=== PATIENT | male | born 1990 | race Caucasian/White ===

== ENCOUNTER 2024-08-13 05:09 | Emergency (ER) | payer OTHER, SELFPAY ==
[2024-08-13 05:14] VITALS: BP 148/80; PULSE 80; RESP 18; TEMP 36.7; O2SAT 100; BMI 25.1
--- NOTE | 2024-08-13 05:27 | CRLHL7_ITS ---
For Patients: As a result of the Century Cures Act, medical imaging exams and procedure reports are released immediately into your electronic medical record. You may view this report before your referring provider. If you have questions, please contact your health care provider. INDICATION: Left flank pain and hematuria. COMPARISON: None. TECHNIQUE: CT of the abdomen and pelvis with intravenous contrast. Multiplanar axial, coronal, and sagittal reformats were reconstructed. Contrast: 85 mL Isovue 370. FINDINGS: Lung bases: Normal. Liver: There is a 0.5 centimeter subcapsular hypodense liver lesion on series 2, image 20. Gallbladder and bile ducts: Normal gallbladder. No bile duct dilation. Pancreas: Normal. Spleen: Normal. Adrenal glands: Normal. Kidneys: There is a 3 millimeter calculus in the left distal ureter. The calculus is about 1.5 centimeters above the ureterovesicular junction. There is upstream ureterectasis and pelvocaliectasis. There is a delayed left nephrogram. No urothelial thickening or enhancement. No perinephric stranding. Normal right renal parenchyma. No cyst or solid mass. No right-sided urinary tract calculi. No right-sided urinary tract dilation. Urinary bladder: Barely filled but normal. Pelvis: No cyst or mass. Vessels: Normal. Bowel: No dilated or inflamed bowel. Normal appendix. Moderate to large stool burden. Lymph nodes: No adenopathy. Peritoneum: No ascites. Abdominal wall: No hernia. Bones: No fractures. No focal worrisome bone lesions. IMPRESSION: 1. There is a 3 millimeter obstructing calculus in the left distal ureter. 2. There is a 0.5 centimeter liver lesion. Very likely to be a small cyst or hemangioma. Depending on the patient`s risk factors for malignancy or metastasis, could consider further characterization with MRI. Keep in mind that due to the very small size and subcapsular location in the dome, it may not be well seen on MRI. Please note that all CT scans at this facility use dose modulation, iterative reconstruction, and/or weight-based dosing when appropriate to reduce radiation dose to as low as reasonably achievable. Dictated by Muna Massey MD @ 08/13/2024 6:04:52 AM (Electronically Signed)
[2024-08-13] MEDS: ONDANSETRON 2 MG/ML inj 4 MG IVP (05:36)
[2024-08-13] MEDS: KETOROLAC 30 MG/ML inj IVP (05:37)
[2024-08-13] MEDS: MORPHINE 4 MG/ML INJ IVP (05:38)
[2024-08-13] MEDS: 0.9 % SODIUM CHLORIDE 1000 ml 1,000 ML IV (05:39)
--- NOTE | 2024-08-13 05:45 | ED.NURSE ---
pt taken for CT scan
[2024-08-13 05:52] LABS: Basophils Absolute Auto 0.03 K/uL (0.00-0.30); Basophils Percent Auto 0.4 % (0.0-3.0); Eosinophils Absolute Auto 0.09 K/uL (0.00-0.50); Eosinophils Percent Auto 1.2 % (0.0-7.0); Hematocrit 47.6 % (37.0-53.0); Hemoglobin* 15.8 gm/dL (13.5-17.5); Immature Granulocytes Abs Auto 0.06 K/uL (0.00-0.30); Immature Granulocytes Pct Auto 0.8 %; Lymphocytes Absolute Auto 1.89 K/uL (0.90-2.90); Lymphocytes Percent Auto 25.8 % (20-44); Mean Corpuscular HGB Conc 33 gm/dL (32-36); Mean Corpuscular Hemoglobin 29 pg (26-34); Mean Corpuscular Volume 87 fL (80-100); Monocytes Percent Auto 5.7 % (0.0-11.0); Neutrophils Absolute Auto 4.84 K/uL (1.7-7.0); Neutrophils Percent Auto 66.1 % (42.0-72.0); Platelet Count* 313 K/uL (140-440); RDW Coefficient of Variation % 11.6 % (11.5-15.5); Red Blood Count 5.45 m/uL (4.30-5.90); Slide Review Reflex No; White Blood Count* 7.33 K/uL (4.50-11.00)
[2024-08-13 06:11] LABS: Chloride* 105 mmol/L (96-114); Sodium* 141 mmol/L (135-149)
[2024-08-13 06:12] LABS: Potassium* 3.9 mmol/L (3.6-5.1)
[2024-08-13 06:14] LABS: Anion Gap 8 mEq/L (7-15); Carbon Dioxide* 28 mmol/L (20-32); Creatinine* 0.9 mg/dL (0.5-1.5); Est. Creatinine Clearance* 118.29; Estimated Glomerular Filt Rate 114 ml/min
[2024-08-13 06:15] LABS: Blood Urea Nitrogen* 22 mg/dL (5-24); Calcium* 9.5 mg/dL (8.4-10.6); Glucose* 122 mg/dL (60-115)
[2024-08-13] MEDS: HYDROmorphone 0.5 mg/0.5 ml inj IVP (06:17)
[2024-08-13] MEDS: TAMSULOSIN HCL 0.4 MG CAPSULE PO (07:03)
--- NOTE | 2024-08-14 21:29 | ED.GENADULT ---
HPI - General Adult General Chief complaint: Flank Pain Stated complaint: Left flank pain, blood in urine Time Seen by Provider: 08/13/24 05:21 History of Present Illness HPI narrative: pt reports at 0330, left sided flank pain, nauseated , red urine. pt states no kidney stone history. Pt vomiting during triage, yellow in color. Pt reports no pain with urination . Pt stated after peeing, flank felt a little better. 34-year-old man presenting to the emergency department with complaint of sudden onset of sharp flank pain in the left. He did see what a suspected to be blood in his urine. Is nauseated and did vomit apparently during triage. No fever. No noted injury. No history of ureteral stone/kidney stones. No other discharge described. Has had low back pain before but this is different. Did seem to radiate toward the groin as well. Related Data Previous Rx's ?Medication ?Instructions ?Recorded amoxicillin 500 mg capsule 500 mg PO TID Strep Throat #21 caps 10/13/22 ondansetron 4 mg disintegrating 4 mg PO Q4-6H PRN nausea and 08/13/24 tablet vomiting #6 tabs oxycodone-acetaminophen 5 mg-325 1 - 2 tab PO Q4-6H PRN pain #12 08/13/24 mg tablet (Percocet) tabs tamsulosin 0.4 mg capsule (Flomax) 0.4 mg PO DAILY PRN #14 caps 08/13/24 Allergies Allergy/AdvReac Type Severity Reaction Status Date / Time No Known Drug Allergies Allergy Verified 10/13/22 08:08 Review of Systems Status of ROS: Reports: 6 or more systems reviewed and unremarkable except as noted in History and below [facility] Medical History Strep throat ?J02.0 - Streptococcal pharyngitis (ICD-10) Social History Smoking Status: Never smoker Non-prescribed substance use: denies use service: No Exam Narrative: Exam Narrative: Appears uncomfortable, restless. Breathing easily. Skin is warm and dry. Sore to palpation in the left mid abdomen/flank. No SI joint area tenderness. Lungs are clear. Heart in regular rate and rhythm. Const: Documenting provider has reviewed patient's vital signs: yes Course Vital Signs Vital signs: Initial Vital Signs Temperature 98.0 F 08/13/24 05:14 Temperature Source Temporal Artery Scan 08/13/24 05:14 Pulse Rate 80 08/13/24 05:14 Pulse Rhythm Regular 08/13/24 05:14 Respiratory Rate 18 08/13/24 05:14 Blood Pressure 148/80 H 08/13/24 05:14 Blood Pressure Mean 102 08/13/24 05:14 Blood Pressure Position Sitting 08/13/24 05:14 Pulse Oximetry 100 08/13/24 05:14 Oxygen Delivery Method Room Air 08/13/24 05:14 Vital Signs Temperature 98.0 F 08/13/24 05:14 Pulse Rate 80 08/13/24 05:14 Respiratory Rate 18 08/13/24 05:14 Blood Pressure 148/80 H 08/13/24 05:14 Pulse Oximetry 100 08/13/24 05:14 Oxygen Delivery Method Room Air 08/13/24 05:14 Temperature 98.0 F 08/13/24 05:14 Pulse Rate 80 08/13/24 05:14 Respiratory Rate 18 08/13/24 05:14 Blood Pressure 148/80 H 08/13/24 05:14 Pulse Oximetry 100 08/13/24 05:14 Oxygen Delivery Method Room Air 08/13/24 05:14 Medications Administered Medications: Discontinued Medications Generic Name Dose Route Start Last Admin Trade Name Freq PRN Reason Stop Dose Admin Hydromorphone HCl 0.5 mg 08/13/24 06:01 08/13/24 06:17 Hydromorphone 0.5 Mg/0.5 Ml Inj IVP 08/13/24 06:02 0.5 mg ONCE ONE Administration Sodium Chloride 1,000 mls @ 1,000 mls/hr 08/13/24 05:27 08/13/24 06:18 0.9 % Sodium Chloride 1000 Ml IV 08/13/24 06:26 Infused .Q1H ONE Infusion Ketorolac Tromethamine 30 mg 08/13/24 05:28 08/13/24 05:37 Ketorolac 30 Mg/Ml Inj IVP 08/13/24 05:29 30 mg ONCE ONE Administration Morphine Sulfate 4 mg 08/13/24 05:28 08/13/24 05:38 Morphine 4 Mg/Ml Inj IVP 08/13/24 05:29 4 mg ONCE ONE Administration Ondansetron HCl 4 mg 08/13/24 05:28 08/13/24 05:36 Ondansetron 2 Mg/Ml Inj IVP 08/13/24 05:29 4 mg ONCE ONE Administration Tamsulosin HCl 0.4 mg 08/13/24 06:54 08/13/24 07:03 Tamsulosin Hcl 0.4 Mg Capsule PO 08/13/24 06:55 0.4 mg ONCE ONE Administration Medical Decision Making MDM Narrative Medical decision making narrative: Doubtful to be urinary tract infection. Really describing urinary colic and what I would suspect is a ureteral stone probably now in the distal ureter. Doubtful diverticulitis though I guess this remains in differential. Could also be vascular disruption/dissection. As this is first-time occurrence I would order CT imaging check labs. Offer symptom relief and IV fluids. Ordered for normal saline morphine and ketorolac. Labs are reassuring. I do independently review CT imaging of abdomen and pelvis. There does appear to be a 2-3 mm stone in the distal left ureter not quite at the ureteral vesicular junction. No significant hydronephrosis. Radiology over-read below INDICATION: Left flank pain and hematuria. COMPARISON: None. TECHNIQUE: CT of the abdomen and pelvis with intravenous contrast. Multiplanar axial, coronal, and sagittal reformats were reconstructed. Contrast: 85 mL Isovue 370. FINDINGS: Lung bases: Normal. Liver: There is a 0.5 centimeter subcapsular hypodense liver lesion on series 2, image 20. Gallbladder and bile ducts: Normal gallbladder. No bile duct dilation. Pancreas: Normal. Spleen: Normal. Adrenal glands: Normal. Kidneys: There is a 3 millimeter calculus in the left distal ureter. The calculus is about 1.5 centimeters above the ureterovesicular junction. There is upstream ureterectasis and pelvocaliectasis. There is a delayed left nephrogram. No urothelial thickening or enhancement. No perinephric stranding. Normal right renal parenchyma. No cyst or solid mass. No right-sided urinary tract calculi. No right-sided urinary tract dilation. Urinary bladder: Barely filled but normal. Pelvis: No cyst or mass. Vessels: Normal. Bowel: No dilated or inflamed bowel. Normal appendix. Moderate to large stool burden. Lymph nodes: No adenopathy. Peritoneum: No ascites. Abdominal wall: No hernia. Bones: No fractures. No focal worrisome bone lesions. IMPRESSION: 1. There is a 3 millimeter obstructing calculus in the left distal ureter. 2. There is a 0.5 centimeter liver lesion. Very likely to be a small cyst or hemangioma. Depending on the patient`s risk factors for malignancy or metastasis, could consider further characterization with MRI. Keep in mind that due to the very small size and subcapsular location in the dome, it may not be well seen on MRI. Pain did escalate and was given a dose of hydromorphone. On reassessment after time of observation is overall improved. I discussed all findings including liver cyst versus hemangioma or other concerns and the ureteral stone with Dionisio. Was also given a dose of Flomax before departure. See patient discharge plan for further discussion You have a 3 mm kidney stone in the lower left ureter about at your bladder. Please strain your urine over the next week. Generally stay well-hydrated. Would take Flomax daily until the stone is not an issue anymore. Prescribing opiate pain medicine and nausea medicine if needed. Otherwise take ibuprofen up to 800 mg per dose. See report regarding 0.5 cm liver lesion. Please discuss this with your primary care provider in follow-up. Medical Records Medical records reviewed: Yes I reviewed the patient's medical records Lab Data Lab results reviewed: Yes I reviewed the patient's lab results Labs: Lab Results 08/13/24 Range/Units 05:37 WBC 7.33 (4.50-11.00) K/uL RBC 5.45 (4.30-5.90) m/uL Hgb 15.8 (13.5-17.5) gm/dL Hct 47.6 (37.0-53.0) % MCV 87 (80-100) fL MCH 29 (26-34) pg MCHC 33 (32-36) gm/dL RDW Coeff of Leela 11.6 (11.5-15.5) % Plt Count 313 (140-440) K/uL Neut % (Auto) 66.1 (42.0-72.0) % Lymph % (Auto) 25.8 (20-44) % [place] % (Auto) 5.7 (0.0-11.0) % Eos % (Auto) 1.2 (0.0-7.0) % Baso % (Auto) 0.4 (0.0-3.0) % Neut # (Auto) 4.84 (1.7-7.0) K/uL Lymph # (Auto) 1.89 (0.90-2.90) K/uL [place] # (Auto) 0.40 (0.00-0.90) K/UL Eos # (Auto) 0.09 (0.00-0.50) K/uL Baso # (Auto) 0.03 (0.00-0.30) K/uL Abs Immat Gran (auto) 0.06 (0.00-0.30) K/uL Imm/Tot Granulo (auto) 0.8 % Sodium 141 (135-149) mmol/L Potassium 3.9 (3.6-5.1) mmol/L Chloride 105 (96-114) mmol/L Carbon Dioxide 28 (20-32) mmol/L Anion Gap 8 (7-15) mEq/L BUN 22 (5-24) mg/dL Creatinine 0.9 (0.5-1.5) mg/dL Estimated Creat Clear 118.29 Estimated GFR 114 ml/min Glucose 122 H (60-115) mg/dL Calcium 9.5 (8.4-10.6) mg/dL Discharge Plan Discharge Clinical Impression: Left ureteral calculus, Ureteral colic, Lesion of liver Patient Disposition: Home w/ Parent or Adult Condition: Improved Instructions: Ureteral Stones (ED) Additional Instructions: You have a 3 mm kidney stone in the lower left ureter about at your bladder. Please strain your urine over the next week. Generally stay well-hydrated. Would take Flomax daily until the stone is not an issue anymore. Prescribing opiate pain medicine and nausea medicine if needed. Otherwise take ibuprofen up to 800 mg per dose. See report regarding 0.5 cm liver lesion. Please discuss this with your primary care provider in follow-up. Prescriptions: New tamsulosin [Flomax] 0.4 mg capsule 0.4 mg PO DAILY PRNQty: 14 0RF oxycodone-acetaminophen [Percocet] 5-325 mg tablet 1 - 2 tab PO Q4-6H PRN (Reason: pain) Qty: 12 0RF ondansetron 4 mg tablet,disintegrating 4 mg PO Q4-6H PRN (Reason: nausea and vomiting) Qty: 6 0RF No Action amoxicillin 500 mg capsule 500 mg PO TID Qty: 21 0RF Follow Up/Referrals: Nas Leos MD [Primary Care Provider] - Stand Alone Forms: [employer] Info Instructions
== END 2024-08-13 08:11 | disposition home or self-care (01) ==
PROVIDERS: Emergency Provider Family Medicine; PCP Family Medicine
DX: N20.1 Calculus of ureter (principal); K76.9 Liver disease, unspecified
CPT/HCPCS: 36415; 74177; 80048; 81001; 85025; 96374; 96375; 99284; 99285; A9270; J1171; J1885; J2270; J2405; J7030; Q9967